=== PATIENT | female | born 1965 | race Caucasian/White ===

== ENCOUNTER 2021-06-06 14:21 | Emergency (ER) | payer MEDICAID, SELFPAY ==
[2021-06-06 14:18] VITALS: BP 138/98; PULSE 80; RESP 16; TEMP 37.4; O2SAT 98; BMI 21.4
--- NOTE | 2021-06-06 14:21 | PC.NURSE ---
pt armband placed on patient, confirming name and . warm blanket also given to her at this time.
--- NOTE | 2021-06-06 14:25 | PC.NURSE ---
Dr. Hermosillo is in with patient at this time.
[2021-06-06 14:30] VITALS: BP 134/94; PULSE 67; O2SAT 98
--- NOTE | 2021-06-06 14:38 | HMH.EDGENADL ---
ED Disposition Clinical Impression: Left anterior knee pain Disposition: Home, Self-Care Condition on Discharge: Good Additional Instructions: Please return to the ED with any new or worsening symptoms, please follow-up with primary care doctor we have given you a referral for one at [facility]. Referrals: Provider,Stacy, [Primary Care Provider] - Howard Harper MD [Staff Physician] - - Critical Care Critical Care Time: No Attestation: On , the high probability of a clinically significant, sudden or life threatening deterioration of the following system(s) required my full and direct attention, intervention and personal management. The time I documented below is in addition to time spent performing reported procedures but includes the following listed in this critical care notation. Medical Decision Making - Medical Records Medical records reviewed: Yes: I reviewed the patient's medical records. - Leopoldo Inquiry Pt receiving controlled substance: No Vital Signs: 06/06/21 14:18 06/06/21 14:30 Temperature 99.4 F Temperature Source Oral Pulse Rate 67 Pulse Rate [Radial] 80 Respiratory Rate 16 Blood Pressure 134/94 H Blood Pressure [Right Radial Artery] 138/98 H Blood Pressure Mean [Right Radial Artery] 111 Blood Pressure Position [Right Radial Artery] Sitting 02 Sat by Pulse Oximetry 98 98 Oxygen Delivery Method Room Air Room Air Orders (Tests/Meds): ED MEDICATIONS Discontinued Medications Generic Name Dose Route Start Last Admin Trade Name Joseph PRN Reason Stop Dose Admin Hydrocodone Bitart/Acetaminophen 1 tab 06/06/21 16:01 06/06/21 16:07 Hydrocodone/Apap 5/325 Mg Tablet PO 06/06/21 16:02 1 tab ONCE ONE Administration Hydromorphone HCl 1 mg 06/06/21 16:20 Hydromorphone 2mg/Ml Syringe IV 06/06/21 16:21 ONCE ONE Lactated Ringer's 500 mls @ 999 mls/hr 06/06/21 16:30 Lactated Ringer's 1000 Ml Bag IV 06/06/21 17:00 .Q31M YVON Ketorolac Tromethamine 30 mg 06/06/21 15:09 06/06/21 15:10 Ketorolac 30mg/Ml Vial IM 06/06/21 15:10 30 mg ONCE ONE Administration ORDERS Category Date Time Status Femur XR left 2 views [XR femur LT 2V] Stat Exams 06/06/21 14:51 Taken Knee XR left 3 views [XR knee LT 3V] Stat Exams 06/06/21 14:52 Taken XR tibia fibula LT 2V Stat Exams 06/06/21 14:52 Taken Medical Decision Narrative: Patient is a 55-year-old female presents the ED today for left knee pain, patient is well-appearing initial valuation no acute distress, vital signs normal and stable. Patient's left knee pain is mostly atraumatic, occurred while ambulating, did not have any fall, no trauma to the knee, is felt a lot of clicking and popping. Patient states her left knee is swollen, and this is consistent with my examination, unable to range passively secondary to pain. Patient unlikely to have a fracture unless it is a fragility fracture, although having trouble bearing weight at this time. We will order x-rays of the left femur knee and tib-fib, and further assess in there. Patient initially not wanting strong opioid pain medications and will start with 15 mg of IM Toradol. Patient given an additional dose of 5 mg of oral [place], feels symptomatically improved after this, I have personally reviewed patient's x-rays with no evidence of acute fracture or dislocation, mild osteoarthritis possibly, and small knee effusion. This is likely either ligament or meniscal injury from patient walking, patient feels improved after pain medications.wanted initially to wait for radiologist interpretation, however over read to taking longer than usual today, and patient wants to go home before reads her back. Can take [id number] pain medications at home, given return precautions return to the ED with any new or worsening symptoms and is verbalized understanding with plan. General Adult HPI - General Stated complaint: Knee Pain Time Seen by Provider: 06/06/21
--- NOTE | 2021-06-06 14:51 | XR_ITS ---
PROCEDURE INFORMATION: Exam: XR Left Femur Exam date and time: 06/06/2021 3:00 PM Age: 55 years old Clinical indication: Pain; Other: Femur/upper leg TECHNIQUE: Imaging protocol: XR Left femur. Views: 2 views. COMPARISON: CR XR KNEE LT 3V 06/06/2021 2:56 PM FINDINGS: Bones/joints: No acute bony injury or malalignment. Mild degenerative change and joint effusion. Soft tissues: Skin folds. Calcification at the quadriceps tendon attachment site. IMPRESSION: Mild degenerative change and joint effusion.
--- NOTE | 2021-06-06 14:52 | XR_ITS ---
PROCEDURE INFORMATION: Exam: XR Left Knee Exam date and time: 06/06/2021 2:56 PM Age: 55 years old Clinical indication: Pain; Knee; Left TECHNIQUE: Imaging protocol: XR Left knee. Views: 3 views. COMPARISON: No relevant prior studies available. FINDINGS: Bones/joints: Mild remodeling deformities in the proximal tibia and fibula, without acute bony injury. Anatomic alignment. Mild degenerative change and small joint effusion. Soft tissues: Calcification at the quadriceps tendon attachment site. IMPRESSION: Mild degenerative change and small joint effusion.
--- NOTE | 2021-06-06 14:52 | XR_ITS ---
PROCEDURE INFORMATION: Exam: XR Left Tibia and Fibula Exam date and time: 06/06/2021 2:58 PM Age: 55 years old Clinical indication: Pain; Lower leg; Left TECHNIQUE: Imaging protocol: XR Left tibia and fibula. Views: 2 views. COMPARISON: CR XR KNEE LT 3V 06/06/2021 2:56 PM FINDINGS: Bones/joints: Mild degenerative change. Remodeling deformities of the proximal tibia and fibula without acute bony injury. Anatomic alignment. Soft tissues: Unremarkable soft tissues. IMPRESSION: Mild degenerative change.
--- NOTE | 2021-06-06 14:53 | PC.NURSE ---
pt sitting up in bed
[2021-06-06 15:00] VITALS: BP 137/89; PULSE 71; RESP 18; O2SAT 99
--- NOTE | 2021-06-06 15:00 | PC.NURSE ---
patient to radiology.
--- NOTE | 2021-06-06 15:18 | PC.NURSE ---
patient back from radiology, hooked up to vital signs and call light back within patient's reach.
--- NOTE | 2021-06-06 15:46 | PC.NURSE ---
pt is resting in bed. nothing needed at this time. call light within reach.
[2021-06-06 16:30] VITALS: BP 131/81; PULSE 81; RESP 19; O2SAT 99
--- NOTE | 2021-06-06 16:34 | PC.NURSE ---
Dr. Hermosillo in speaking with patient at this time. She is stating that she wants to go home. She is hungry and wants to go home to eat. She doesn't want to wait on radiology results.
[2021-06-06 16:50] VITALS: BP 132/74; PULSE 78; RESP 16; TEMP 36.6; O2SAT 98
== END 2021-06-06 16:51 | disposition home or self-care (01) ==
PROVIDERS: Emergency Provider Student in an Organized Health Care Education/Training Program
DX: M25.562 Pain in left knee (principal); Z88.0 Allergy status to penicillin
CPT/HCPCS: 73552; 73562; 73590; 96372; 99284

== ENCOUNTER → 2021-10-28 06:42 | Outpatient (CLI) | payer MEDICAID, SELFPAY ==
[2021-10-28 17:45] LABS: Basophils # 0.1 K/mm3 (0-0.2); Basophils % 1.4 % (0.1-2.0); Eosinophils # 0.1 K/mm3 (0.0-0.4); Eosinophils % 1.7 % (0.1-12.0); Hematocrit 45.2 % (37.0-47.0); Hemoglobin 14.1 g/dL (12.2-16.2); Lymphocytes # 2.4 K/mm3 (0.7-4.5); Lymphocytes % 35.4 % (10-50); Mean Corpuscular HGB Conc 31.2 g/dL (31.8-35.4); Mean Corpuscular Hemoglobin 31.7 pg (27.0-31.2); Mean Corpuscular Volume 101.3 fl (81-99); Monocytes # 0.3 K/mm3 (0.1-1.0); Monocytes % 4.7 % (1.7-9.3); Neutrophils # 3.8 K/mm3 (1.8-7.8); Neutrophils % 56.8 % (37.0-80.0); Platelet Count 240 K/mm3 (142-424); Red Blood Count 4.46 M/mm3 (4.20-5.40); Red Cell Distribution Width 13.9 % (11.5-17.5); White Blood Count 6.8 K/mm3 (4.8-10.8)
[2021-10-28 17:57] LABS: Chloride 108 mmol/L (98-107); Sodium 144 mmol/L (136-145)
[2021-10-28 18:00] LABS: Alanine Aminotransferase 34 U/L (12-78); Alkaline Phosphatase 76 U/L (38-126); Aspartate Amino Transferase 41 U/L (14-36); Bilirubin,Total 0.2 mg/dl (0.2-1.3); Blood Urea Nitrogen 15 mg/dl (7-17); Calcium 9.7 mg/dl (8.4-10.2); Carbon Dioxide 31 mmol/L (22.0-30.0); Chol/HDL Ratio 2.7 (1-3.5); Cholesterol 171 mg/dl (140-200); Estimated Glomerular Filt Rate 87 ml/min (>60); GFR (African American) 105 ML/MIN (>60); Glucose 105 mg/dl (74-100); HDL Cholesterol 63 mg/dl (40-60); Triglycerides 89 mg/dl (30-150); VLDL Cholesterol 18 mg/dL (0-40)
[2021-10-28 18:01] LABS: Albumin Level 4.4 g/dl (3.5-5.0); Albumin/Globulin Ratio 1.9 (1.1-1.8); Globulin 2.3 g/dL (1.3-3.2); Total Protein,Serum 6.7 g/dl (6.3-8.2)
[2021-10-28 18:02] LABS: Microalbumin < 6.000 mg/L (0-16.7)
[2021-10-28 18:31] LABS: Thyroid Stimulating Hormone 0.88 uIU/mL (0.465-4.68)
[2021-10-30 08:23] LABS: Direct LDL Cholesterol 87 mg/dL (100-129)
== END ==
PROVIDERS: PCP Nurse Practitioner; Visit Provider Nurse Practitioner
DX: I10 Essential (primary) hypertension (principal); E78.5 Hyperlipidemia, unspecified; Z79.899 Other long term (current) drug therapy
CPT/HCPCS: 80053; 80061; 82043; 84443; 85025

== ENCOUNTER → 2021-11-30 12:35 | Outpatient (POV) | payer MEDICAID, SELFPAY ==
[2021-11-30 13:10] VITALS: BP 125/85; PULSE 63; RESP 18; TEMP 36.8; O2SAT 98; BMI 21.9
--- NOTE | 2021-11-30 13:19 | EXP.PAIN.OV ---
HPI Data of Consult Patient: new to practice Consult date: 11/30/21 Requesting Physician: Ansley Singh APRN Primary Care Provider: ЕКАТЕРИНА Lyons Consult Narrative Reason for consult: Low back pain History of present illness: Ms. Pace is a 56 year old female who presents today as a new patient. She is a referral from Kyung Barajas's office. Today the patient rates her pain a 10 out of 10 and states the pain is all in her low back. Patient denies any radicular symptoms. Patient denies any new trauma or injury. She states this pain has been going on for years however it is worsened over time. Patient describes this as a constant, punching sensation that is worse with increased activity. She did state that years ago she was moving furniture and popped her back and could not move for several hours. Patient has seen a chiropractor in the past however did not get significant improvement. Patient has not had any injective therapy in the past or physical therapy. Patient states she does do at home exercising and stretching however her symptoms continue to be significant. Patient has used Tylenol and ibuprofen [id number] as needed with minimal improvement of her symptoms. Patient states heat helps however it only provide short-term relief and ice makes her pain symptoms worse. Patient has not used any topical creams. She also states she does have bilateral knee pain/arthritis. Patient did states she does not like needles. She is not currently on any scheduled medications. Patient states she has had an x-ray of her lumbar spine in the past and stated it did show degenerative disc disease. Her Leopoldo is [phone]. It has been reviewed and appropriate. CC: Ansley Singh APRN [facility] Social History Smoking Status: Current every day smoker alcohol intake: never current occupational status: other Travel in the last 8 weeks: None Review of Systems Review of Systems Review of systems:: pertinent systems reviewed and negative unless documented below Review of systems (narrative): Review of Systems: General: No recent weight changes, no fever, no sleep disturbances Respiratory: No cough, no shortness of air, no recurring pulmonary infections Cardiovascular/peripheral vascular: No chest pain, no palpitations, no edema, no shortness of breath Gastrointestinal: No new onset incontinence, normal bowel movements reported Genitourinary: No new onset incontinence Musculoskeletal: Low back pain Psychiatric: [Normal mood/affect] Neurological: [Denies weakness in extremities], [denies balance issues] Meds Home Medications and Allergies Home Medications Medication Instructions Recorded Confirmed Type albuterol sulfate 90 mcg/actuation 2 puff inhalation Q4-6H PRN 10/28/21 10/28/21 Rx aerosol inhaler shortness of breath or wheezing 90 days #25.5 grams amlodipine 10 mg tablet 5 mg PO BID #90 tabs 10/28/21 10/28/21 Rx aspirin 81 mg tablet,delayed 81 mg PO DAILY #90 tabs 10/28/21 10/28/21 Rx release atorvastatin 20 mg tablet 20 mg PO DAILY #90 tabs 10/28/21 10/28/21 Rx atorvastatin 40 mg tablet 40 mg PO HS #90 tabs 10/28/21 10/28/21 Rx losartan 50 mg-hydrochlorothiazide 1 tab PO DAILY #30 tabs 10/28/21 10/28/21 Rx 12.5 mg tablet pantoprazole 40 mg tablet,delayed 40 mg PO DAILY #90 tabs 10/28/21 10/28/21 Rx release tiotropium bromide 2.5 2 puff inhalation DAILY 90 days 10/28/21 10/28/21 Rx mcg/actuation mist for inhalation #12 grams (Spiriva Respimat) tizanidine 2 mg capsule 2 mg PO BID PRN muscle spasticity 10/28/21 10/28/21 Rx 90 days #180 caps New Prescriptions to Start Prescriptions: Allergies Allergy/AdvReac Type Severity Reaction Status Date / Time Penicillins Allergy Verified 10/28/21 13:01 Objective Narrative: Physical Exam: General: Alert and oriented x3, no acute distress, pleasant and cooperative Lungs: Respirations even and unlabored, symmetrical chest ex
== END ==
PROVIDERS: PCP Physician Assistant; Visit Provider Nurse Practitioner Family
DX: M54.50 Low back pain, unspecified (principal); M25.561 Pain in right knee; M25.562 Pain in left knee
CPT/HCPCS: 99202; G0463

== ENCOUNTER 2022-01-08 12:40 | Emergency (ER) | payer MEDICAID, SELFPAY ==
[2022-01-08 14:22] VITALS: BP 145/87; PULSE 60; RESP 17; TEMP 36.8; O2SAT 99; BMI 19.8
--- NOTE | 2022-01-08 14:26 | EXP.UTC ---
Discharge Plan Disposition Patient Disposition: Home, Self-Care Condition: Good Prescriptions Prescriptions: No Action albuterol sulfate 90 mcg/actuation HFA aerosol inhaler 2 puff IH Q4-6H PRN (Reason: shortness of breath or wheezing) 90 Days Qty: 25.5 1RF tizanidine 2 mg capsule 2 mg PO BID PRN (Reason: muscle spasticity) 90 Days Qty: 180 1RF atorvastatin 40 mg tablet 40 mg PO HS atorvastatin 20 mg tablet 20 mg PO DAILY aspirin 81 mg tablet,delayed release (DR/EC) 81 mg PO DAILY amlodipine 10 mg tablet 5 mg PO BID pantoprazole 40 mg tablet,delayed release (DR/EC) 40 mg PO DAILY losartan-hydrochlorothiazide 50-12.5 mg tablet 1 tab PO DAILY Spiriva Respimat 2.5 mcg/actuation mist 2 puff IH DAILY Referrals Follow up/Referrals: Provider,Referral, MD [Primary Care Provider] - See instructions Activity Restrictions/Add. Instructions Additional Instructions/Restrictions: *Monitor Temp, Over the counter Motrin or Tylenol as directed/as needed Tylenol every 4 hours and Motrin every 6 hours (as long as your family doctor has told you that you can take it) for fever or pain. and straight to ER if unable to lower temp less than 101.0 after medication given *Warm salt water gargles may help to soothe the throat *Throat Lozenges? *Warm fluids like tea with honey may help to soothe the throat? *Sleep elevated *Humidifier/Vaporizer Follow up IMMEDIATELY for new or worsening symptoms or no Noticeable improvement over the next 48-72 hours. 911 for difficulty breathing or swallowing You were tested for today for COVID19 your test result should be back in the next 24-48 hours, you may check your results on the [facility] [place] city of [place]the [facility] Clinical Impressions Clinical Impression: Encounter for laboratory testing for COVID-19 virus Discharge ED Provider: Rachel Urban [facility] HPI General Stated complaint: runny nose Mode of Arrival: Ambulatory Source of Information: Patient Limitations: No Limitations Time Seen by Provider: 01/08/22 14:26 Description of Symptoms (Recalled from Triage Doc. by RN): pt comes in for covid test. symptoms include runny nose, allergies. HEENT Symptoms (Recalled from RN notes): Yes Resp Symptoms (Recalled from RN notes): No Skin Symptoms (Recalled from RN notes): No MS Symptoms (Recalled from RN notes): No Functional Status (Recalled from RN notes): n/a History of Present Illness Provider Complaint: Patient states that brother wanted her to get tested for COVID states that she has been having a runny nose and thinks it is just allergies but wanted to get tested Related Data Home Medications Medication Instructions Recorded Confirmed amlodipine 10 mg tablet 5 mg PO BID BLOOD PRESSURE 11/30/21 01/08/22 aspirin 81 mg tablet,delayed 81 mg PO DAILY Blood thinner 11/30/21 01/08/22 release atorvastatin 20 mg tablet 20 mg PO DAILY Cholesterol 11/30/21 01/08/22 atorvastatin 40 mg tablet 40 mg PO HS Cholesterol 11/30/21 01/08/22 losartan 50 mg-hydrochlorothiazide 1 tab PO DAILY BLOOD PRESSURE 11/30/21 01/08/22 12.5 mg tablet pantoprazole 40 mg tablet,delayed 40 mg PO DAILY STOMACH 11/30/21 01/08/22 release tiotropium bromide 2.5 2 puff inhalation DAILY Breathing 11/30/21 01/08/22 mcg/actuation mist for inhalation problems (Spiriva Respimat) Previous Rx's Medication Instructions Recorded albuterol sulfate 90 mcg/actuation 2 puff inhalation Q4-6H PRN 10/28/21 aerosol inhaler shortness of breath or wheezing 90 days #25.5 grams tizanidine 2 mg capsule 2 mg PO BID PRN muscle spasticity 10/28/21 90 days #180 caps Allergies Allergy/AdvReac Type Severity Reaction Status Date / Time Penicillins Allergy Verified 01/08/22 14:24 Worker's Comp Is this a Worker's Comp case?: No PFSH PFSH Social History Smoking Status: Current every day smoker alcohol inta
[2022-01-08 14:29] VITALS: BP 145/87; PULSE 60; RESP 17; TEMP 36.8
== END 2022-01-08 14:31 | disposition home or self-care (01) ==
PROVIDERS: Emergency Provider Nurse Practitioner
DX: Z20.822 Contact with and (suspected) exposure to COVID-19 (principal)
CPT/HCPCS: 99212; C9803; G0463; U0003; U0005